=== PATIENT | male | born 1950 | race Caucasian/White ===

== ENCOUNTER 2018-01-24 01:53 | Observation (INO) | payer MEDICARE, OTHER ==
--- NOTE | 2018-01-23 12:54 | LEVENE H&P ---
DATE OF ADMISSION: January 24, 2018 IDENTIFICATION/CHIEF COMPLAINT The patient is a 67-year-old gentleman with a chief complaint of left knee pain. HISTORY OF PRESENT ILLNESS The patient has a longstanding history of knee arthritis, progressively painful and debilitating and refractory to conservative care. Surgery is indicated to relieve pain after failure of nonoperative measures. ALLERGIES POLLEN, which causes congestion. No known drug allergies. CURRENT MEDICATIONS Lero-ejg-iqnbnsx medications only including multiple vitamins. PAST SURGICAL HISTORY Notable for back operation. SOCIAL HISTORY Negative for tobacco use. He drinks alcohol on a social basis. He denies abuse. FAMILY HISTORY Notable for mother with bipolar disorder and father with hypertension. REVIEW OF SYSTEMS Otherwise negative. PHYSICAL EXAMINATION GENERAL: This is a well-developed, well-nourished male who appears stated age. HEENT: Normocephalic, atraumatic. NECK: Supple. LUNGS: Clear. HEART: Regular. ABDOMEN: Soft. ORTHOPEDIC: Left knee has an effusion present. He is stiff on range. Crepitus is noted. Extensor function is intact. Gross stability is good. Radiographs demonstrate end-stage DJD. ASSESSMENT Left knee degenerative joint disease, refractor to conservative care. PLAN Per patient request, we are going to proceed with total knee arthroplasty. The nature of the procedure, the risks, benefits, the anticipated rehabilitative course were reviewed. Risks include but are not limited to , major medical or anesthetic complication, infection, neurovascular injury, blood transfusion, stiffness, scarring, refractory tendon rupture, instability, implant loosening, migration or failure, persistent or recurrent pain, need for additional surgery and other unforeseen. He understands and wishes to proceed. A signed permit is placed in the chart. No guarantees are given or implied. [facility]
[2018-01-23 13:44] LABS: INR 0.94
[~2018-01-24] VITALS: Ht 181.6 cm; Wt 83.9 kg
[2018-01-24] VITALS (16 sets, daily range): BP systolic 102–126; BP diastolic 59–90
[~2018-01-24 01:53] MED LIST: ACET500T68 PO; SILD100T59 PO
[2018-01-24] MEDS ORDERED: LIDOCAINE/SOD BICARB 8.4% SYR ID ONE (06:15)
[2018-01-24] MEDS ORDERED: PREGABALIN 150 MG CAPSULE PO ONE (06:15)
[2018-01-24] MEDS ORDERED: TRANEXAMIC AC 1000 MG/10ML SDV 1,000 MG in DEXTROSE 5% 50 ML BAG 50 ML IV ONE (06:15)
[2018-01-24] MEDS ORDERED: NORMOSOL R SOLN(*) 1000 ML BAG 1,000 ML IV PRN ×2 (06:15→10:00)
[2018-01-24] MEDS ORDERED: ceFAZolin(*) 2GM/D5W 50ML 50 ML IVPB ONE (06:15)
[2018-01-24] MEDS ORDERED: ACETAMINOPHEN 500 MG TAB PO ONE ×2 (06:15)
[2018-01-24] MEDS ORDERED: MIDAZOLAM 2 MG/2 ML VIAL IVP PRN (06:15)
[2018-01-24] MEDS ORDERED: CELECOXIB 200 MG CAP PO ONE (06:15)
[2018-01-24] MEDS ORDERED: cloNIDine EPIDUR INJ 100MCG/ML 40 MCG, ROPIVACAINE 0.5% 20 ML VIAL 25 ML, EPINEPHrine H... INJ ONE (06:15)
[2018-01-24] MEDS ORDERED: FAMOTIDINE 20 MG TAB PO ONE (06:15)
[2018-01-24] MEDS ORDERED: PROPOFOL EMUL(*) 10MG/ML 20 ML 20 ML ONE (06:45)
[2018-01-24] MEDS ORDERED: METOCLOPRAMIDE 10 MG/2 ML SDV ONE (06:45)
[2018-01-24] MEDS ORDERED: LIDOCAINE MPF 1% 5 ML VIAL ONE (06:45)
[2018-01-24] MEDS ORDERED: fentaNYL CITR 100 MCG/2 ML AMP ONE (06:45)
[2018-01-24] MEDS ORDERED: ONDANSETRON 4 MG/2 ML VIAL ONE ×2 (06:45→11:07)
[2018-01-24] MEDS ORDERED: DEXAMETHASONE SOD 4 MG/ML VIAL ONE (06:45)
[2018-01-24] MEDS ORDERED: ACETAMINOPHEN 325 MG TAB PO PRN (10:00)
[2018-01-24] MEDS ORDERED: diphenhydrAMINE 50 MG/ML VIAL IVP PRN (10:00)
[2018-01-24] MEDS ORDERED: BISACODYL 10 MG SUPP PR PRN (10:00)
[2018-01-24] MEDS ORDERED: FLUSH 10 ML SYR IVP PRN (10:00)
[2018-01-24] MEDS ORDERED: DIAZEPAM 5 MG TAB PO PRN (10:00)
[2018-01-24] MEDS ORDERED: BENZOCAINE/MENTHOL 1 EACH LOZG PO PRN (10:00)
[2018-01-24] MEDS ORDERED: PROMETHAZINE 25 MG/ML 1 ML AMP IVP PRN (10:00)
[2018-01-24] MEDS ORDERED: ZOLPIDEM TARTRATE 5 MG TAB PO PRN (10:00)
[2018-01-24] MEDS ORDERED: diphenhydrAMINE 25 MG CAP PO PRN (10:00)
[2018-01-24] MEDS ORDERED: MAGNESIUM HYDROXIDE* 30ML UDCP PO PRN (10:00)
--- NOTE | 2018-01-24 10:07 | RADIOLOGY IMAGING REPORT ---
[place]AC[place] [facility] [place] NAME: Prince Titus : 1950 MR: [id number] V: [id number] EXAM DATE: ORDERING PHYSICIAN: YARIEL DAVIES TECHNOLOGIST: Location: [facility] - [place] Patient: Prince Titus : 1950 Visit/Account:[id number] Date of Sevice: 01/24/2018 Exam type: KNEE LIMITED LEFT History: S/P TOTAL KNEE ARTHROPLASTY. Comparison: None. Findings: AP and lateral views left knee demonstrate a left knee arthroplasty in good anatomic alignment. Soft tissue gas and skin kayla project over the anterior aspect this postoperative knee IMPRESSION: 1. As above Report Dictated By: Judy Tolliver MD at 01/24/2018 10:01 AM Report E-Signed By: Judy Tolliver MD at 01/24/2018 10:02 AM WSN:[id number]
--- NOTE | 2018-01-24 12:32 | Hospitalist Progress Note ---
Subjective Progress Notes Subjective No cp/sob. No concerns from the patient or staff. 1300cc of crystalloid, dexamethasone, ephedrine and TXA given intra-op. Lowest intra-op BP was 80/50. Physical Exam Vital Signs Date Time Temp Pulse Resp B/P (MAP) Pulse Ox O2 Delivery O2 Flow Rate FiO2 01/24/18 11:23 96.7 64 12 114/73 (87) 97 Nasal Cannula 2.0 General Appearance: Alert, Awake, No Acute Distress Cardiovascular: Regular Rate and Rhythm Respiratory: Clear to Auscultation Extremities: No Edema Assessment and Plan Problems: (1) Status post knee replacement Status: Acute Assessment & Plan: No CV/pulmonary issues. His father had a DVT in his 70's, so Dr. Lucia has ordered Xarelto for the patient. I have recommended that the patient then take ASA 325mg daily for month after stopping the Xarelto as an outpatient. Problem Qualifiers (1) Status post knee replacement: Laterality: left Qualified Codes: Z96.652 - Presence of left artificial knee joint NADYA PRESTON MD Jan 24, 2018 12:32
--- NOTE | 2018-01-24 14:29 | OPERATIVE REPORT 1 ---
EVENT DATE: January 24, 2018 SURGEON: Osito Lucia MD ANESTHESIOLOGIST: Elia Potts MD ANESTHESIA: General plus spinal AUTOMATIC LUMP MAKING MACHINE TENDER: JESSE Ortiz PREOPERATIVE DIAGNOSIS Left knee degenerative joint disease. POSTOPERATIVE DIAGNOSIS Left knee degenerative joint disease. PROCEDURE PERFORMED Left total knee arthroplasty. ESTIMATED BLOOD LOSS Minimal DRAINS None. SPECIMENS None. COMPLICATIONS None apparent. TOURNIQUET TIME 50 minutes IMPLANTS USED Chago Triathlon knee system with 5 left PS femur, 6 standard tibial baseplate, 36 mm universal, cemented, all-polyethylene patellar button, and a 13 mm PS tibial tray liner. Polyethylene is X3. INDICATIONS Prince is a 67-year-old gentleman with intractable pain and disability related to endstage knee arthritis. Surgery indicated to relieve pain and improve function after failure of nonoperative measures. DESCRIPTION OF PROCEDURE Patient was taken to the operating room and placed supine on the operating table. General anesthesia was induced. Antibiotics were administered IV. The left lower extremity was prepped and draped in usual sterile fashion for orthopedic surgery. Limb was exsanguinated with an Esmarch bandage. The tourniquet was inflated to 275 mmHg. A midline longitudinal incision was made, carried down through the skin and subcutaneous tissue to the extensor mechanism. Full-thickness flaps were developed far enough medially to allow medial parapatellar arthrotomy to be performed. Patella was everted. Knee was brought into the flexed position. Fat pad, anterior horns, of the menisci, and the cruciate ligaments are debrided. A subperiosteal medial release was initiated in a gentle titrating fashion to start to balance the knee. A step drill was used to enter the distal femur. A 10-inch long alignment guide was used to engage the isthmus, cut set for 5 degrees of valgus relative to the anatomic axis. The 10 mm resection block was applied, pinned, and cuts made with an oscillating saw. AP sizing guide is applied to the distal femoral cut, positioned for 3 degrees of external rotation relative to the posterior condyles. A size 5 is optimal without risk of notching. The four-in-one cutting block is applied. Anterior, posterior, posterior chamfer, and anterior chamfer cuts are made respectively. PS block was applied and centered. Medial and lateral bone is removed through the box. Trial femur has nice [id number] fit. Attention is turned to the tibial preparation. The extramedullary guide is applied, positioned for varus, valgus, posterior slope, and rotation. This was set to resect 9 mm from the relatively intact lateral tibial plateau. It is dropped down a couple of millimeters to assure an adequate cut. Block is pinned. Extramedullary alignment check is made. Cuts made with an oscillating saw. After osteophyte removal, the caps were balanced and symmetric with no additional releases required. The size 6 tibial baseplate provides optimum bony coverage without soft tissue overhang. This was inserted along with the trial liner and the trial femur. Patella is taken from the starting thickness of 28 mm to a residual of 17 mm with a patellar clamp and oscillating saw. The 36 provides optimum bony coverage without soft tissue overhang. Lug holes are drilled. Patella tracks nicely with the no-touch technique. Final tibial preparation consists of assuring appropriate rotational and translational positioning of the component. The boss was reamed. Fin is punched. Surfaces are lavaged. All components are cemented in a single stage. Once the cement is fully polymerized, tourniquet was deflated. Hemostasis was assured. The 13 PS tibial tray liner fills up the gap ideally, allowing the knee to drop to full extension without hyperextension, proving optimal soft tissue tension and stability. The tray is lavaged and dried, and the actual liner is locked into the baseplate. Joint was reduced. Arthrotomy was closed in flexion with #2 Ethibond, subcutaneous tissue with 3-0 Vicryl, skin with surgical kayla. Xeroform and 4x4's applied as a dry, sterile dressing and compression wrap. The patient was awakened from anesthesia and taken to the recovery room in stable condition having tolerated the procedure well. PLAN Is for standard TKA rehab protocol. [facility]
[2018-01-24] MEDS: ceFAZolin(*) 1 GM VIAL 1 GM in NS(*) 0.9% 100 ML ADDVANT BAG 100 ML IVPB SCH (16:39)
[2018-01-24] MEDS: CELECOXIB 200 MG CAP PO SCH (16:39)
[2018-01-24] MEDS: APAP/HYDROCODONE 325/7.5 TAB PO PRN ×2 (16:39→20:54)
[2018-01-25] MEDS: ceFAZolin(*) 1 GM VIAL 1 GM in NS(*) 0.9% 100 ML ADDVANT BAG 100 ML IVPB SCH ×2 (00:04→08:39)
[2018-01-25] MEDS: APAP/HYDROCODONE 325/7.5 TAB PO PRN ×2 (03:11→08:38)
[2018-01-25 03:13] VITALS: BP 112/66
[2018-01-25] MEDS ORDERED: HYDR-4308 PO (07:41)
[2018-01-25 07:51] VITALS: BP 129/70
[2018-01-25] MEDS: CELECOXIB 200 MG CAP PO SCH (08:38)
[2018-01-25] MEDS ORDERED: RIVAROXABAN 10 MG TAB PO SCH (09:00)
--- NOTE | 2018-01-25 09:08 | Hospitalist Progress Note ---
Subjective Progress Notes Subjective He has no complaints this morning. He had no acute events overnight. Patient Complains of: Cardiovascular: No: Chest Pain Respiratory: No: Shortness of Breath Physical Exam Vital Signs Date Time Temp Pulse Resp B/P (MAP) Pulse Ox O2 Delivery O2 Flow Rate FiO2 01/25/18 07:55 93 Room Air 01/25/18 07:51 98.4 81 15 129/70 (89) 01/25/18 05:43 1.0 Intake and Output 01/25/18 07:00 Intake Total 3604 ml Balance 3604 ml Intake Oral 2045 ml IV Total 1559 ml # Voids 6 General Appearance: Alert, Awake, No Acute Distress, Afebrile Neuro: No Gross deficits Cardiovascular: Regular Rate and Rhythm Respiratory: No Respiratory Distress, Clear to Auscultation Psych: Alert & Oriented X3, Appropriate Mood & Affect Assessment and Plan Problems: (1) Status post knee replacement Status: Acute Assessment & Plan: No CV/pulmonary issues. His father had a DVT in his 70's, so Dr. Lucia has ordered Xarelto for the patient. I have recommended that the patient then take ASA 325mg daily for month after stopping the Xarelto as an outpatient. Exam Sepsis Risk: No Definite Risk Problem Qualifiers (1) Status post knee replacement: Laterality: left Qualified Codes: Z96.652 - Presence of left artificial knee joint ANAHY SRIVASTAVA WIRE DRAWING MACHINE OPERATOR Jan 25, 2018 09:08
[2018-01-25] MEDS ORDERED: RIV10 PO (09:48)
[2018-01-25 10:12] VITALS: Ht 181.6 cm; Wt 83.9 kg
== END 2018-01-25 11:05 | disposition home or self-care (01) ==
LOC: OR 01:53 → MED 11:16
PROVIDERS: ADMIT Orthopaedic Surgery; ATTEND Orthopaedic Surgery
DX: M17.12 Unilateral primary osteoarthritis, left knee (principal); C91.91 Lymphoid leukemia, unspecified, in remission
CPT/HCPCS: 27447; 36415; 73560; 85610; 86850; 86900; 86901; 97116; 97161; 97530; A9270; C1713; C1776; G0378; J0171; J0690; J0735; J1100; J1885; J2001; J2250; J2405; J2704; J2765; J2795; J3010; J7050; J7060